=== PATIENT | male | born 1980 | race Caucasian/White ===

== ENCOUNTER 2021-10-22 12:00 | Emergency (ER) | payer BC ==
[2021-10-22 12:32] VITALS: BP 149/98; PULSE 74; TEMP 98.6; BMI 28.0
[2021-10-22] MEDS ORDERED: SODIUM CHLORIDE 0.9% 500 ML INFUS.BAG IV ONE (12:36)
[2021-10-22 13:32] LABS: HEMOGLOBIN 14.9 G/dL (11.7-16.9); MCH 31.1 pg (25.7-33.7); MCHC 35.4 g/dl (32.0-35.9); MEAN CELL VOLUME 87.8 fl (80-96); MEAN PLT VOLUME 8.3 fl (7.5-11.1); PLATELET COUNT 222.9 10^3/uL (134-434); RBC 4.78 10^6/uL (4.00-5.60); RDW 13.9 % (11.9-15.9); WHITE BLOOD COUNT 4.5 10^3/uL (4.0-10.8)
[2021-10-22 13:35] LABS: PLATELET ESTIMATE ADEQUATE
[2021-10-22 13:47] LABS: ALBUMIN 4.3 g/dl (3.4-5.0); BILIRUBIN,TOTAL 0.7 mg/dl (0.2-1); CALCIUM 9.3 mg/dl (8.5-10); CREATININE 0.8 mg/dl (0.55-1.3); TOT PROT 7.4 g/dl (6.4-8.2)
== END 2021-10-22 14:05 | disposition home or self-care (01) ==
LOC: FER 12:00 → SUPCPDRO 12:00 → FER 14:05
DX: R42 Dizziness and giddiness (principal)
CPT/HCPCS: 36415; 80053; 85025; 93005; 99284-25